=== PATIENT | male | born 1955 | race Caucasian/White ===

== ENCOUNTER → 2020-02-14 12:21 | Outpatient (CLI) | payer MEDICARE, SELFPAY ==
[2020-02-14 12:46] LABS: Basophils # 0.2 K/mm3 (0-0.2); Basophils % 1.1 % (0.1-2.0); Eosinophils # 0.1 K/mm3 (0.0-0.4); Eosinophils % 0.8 % (0.1-12.0); Hematocrit 43.8 % (42.0-52.0); Hemoglobin 14.8 g/dL (14.1-18.0); Lymphocytes # 1.8 K/mm3 (0.7-4.5); Lymphocytes % 11.3 % (10-50); Mean Corpuscular HGB Conc 33.7 g/dL (31.8-35.4); Mean Corpuscular Hemoglobin 29.7 pg (27.0-31.2); Mean Corpuscular Volume 88.1 fl (80-94); Mean Platelet Volume 7.2 fl (7.4-10.4); Monocytes # 0.9 K/mm3 (0.1-1.0); Monocytes % 5.6 % (1.7-9.3); Neutrophils % 81.1 % (37.0-80.0); Platelet Count 304 K/mm3 (142-424); Red Blood Count 4.97 M/mm3 (4.60-6.20); Red Cell Distribution Width 13.5 % (11.5-17.5)
[2020-02-14 12:57] LABS: Anion Gap 14.5 mEq/L (5-15); Blood Urea Nitrogen 15 mg/dl (9-20); Calcium 9.2 mg/dl (8.4-10.2); Carbon Dioxide 31 mmol/L (22.0-30.0); Chloride 93 mmol/L (98-107); Estimated Glomerular Filt Rate 98 ml/min (>60); GFR (African American) 118 ML/MIN (>60); Glucose 216 mg/dl (74-100); Potassium 4.5 mmoL/L (3.5-5.1); Sodium 134 mmol/L (136-145)
[2020-02-14 13:02] LABS: MANUAL DIFFERENTIAL MANUAL DIFFERENTIAL (MANUAL DIFF)
[2020-02-14 13:06] LABS: Acetone, Serum (Rapid) None Detected (None Detect)
[2020-02-14 13:15] LABS: Lymphocytes % 10 % (10-50); Monocytes % 10 % (2-9); Neutrophils % 80 % (42-76); Platelet Estimate Normal; RBC Morphology Normal; Total Cells Counted 100
== END ==
PROVIDERS: Visit Provider Internal Medicine
DX: R30.0 Dysuria (principal); R35.0 Frequency of micturition; E11.21 Type 2 diabetes mellitus with diabetic nephropathy
CPT/HCPCS: 36415; 80048; 82009; 85007; 85025; 87086; 87088; 87186

== ENCOUNTER 2021-01-01 10:54 | Emergency (ER) | payer MEDICARE, SELFPAY ==
[2021-01-01 10:54] VITALS: BP 189/85; PULSE 73; RESP 18; TEMP 37.1; O2SAT 98; BMI 29.9
--- NOTE | 2021-01-01 11:02 | CT_ITS ---
PROCEDURE: CT ABDOMEN PELVIS WO CON CLINICAL INDICATION: R flank pain Right flank pain COMPARISON: No exams were available for comparison TECHNIQUE: Axial images obtained with sagittal and coronal reformats. All CT scans at the facility use one or more dose reduction, viz: automated exposure control, ma/kV adjustment per patient size (including targeted exams where dose is matched to indication, i.e. head), or iterative reconstruction technique. FINDINGS: LOWER THORAX: No acute finding. Coronary artery calcifications ABDOMEN & PELVIS: Fatty liver. Mildly distended gallbladder. The spleen, adrenal glands, and pancreas show no acute finding. There are few small calcifications in the tail the pancreas non specific. There is mild right hydronephrosis and hydroureter secondary to a 8 mm stone in the proximal right ureter. There is stranding of the right perinephric fat and proximal periureteral fat. A 2 mm stone is present in the lower pole of the right kidney. There are few small periportal lymph nodes. There is a mild amount of retained colonic feces. There are few colonic diverticula but no evidence of diverticulitis. No intestinal obstruction or free air. There is thickening of the rectosigmoid region as well as mild thickening of the distal descending and sigmoid colon. These findings could be related to nondistention. Colitis/proctitis is also consideration. No acute bony anomalies apparent. IMPRESSION: 1. 8 mm obstructing proximal right ureteral stone with mild hydro nephrosis and dilatation of the proximal ureter also with stranding of the right perinephric renal fat and associated right nephrolithiasis.. 2. Thickening of the distal descending colon sigmoid colon and rectosigmoid region. This is nonspecific and may be due to nondistention. Colitis/proctitis is also consideration. There is a mild amount of retained colonic feces in the right colon and transverse colon. The Dictated by: Rasheed Jacobson MD 01/01/2021 13:02 Rasheed Jacobson MD in [place] 01/01/2021 13:02
--- NOTE | 2021-01-01 11:32 | HMH.EDGENADL ---
ED Disposition Clinical Impression: Ureterolithiasis Disposition: Home, Self-Care Condition on Discharge: Good Instructions: Kidney Stones -- Adult Prescriptions: Ketorolac Tromethamine [Toradol 10mg tablet] 10 mg PO Q4HP #16 tab MDD 40mg/day Transmission Status: Received by [facility] # Tamsulosin HCl [Flomax 0.4mg capsule] 0.4 mg PO HS #15 cap Transmission Status: Received by [facility] # Oxycodone HCl/Acetaminophen [Percocet 5/325mg tablet] 1 tab PO Q4H PRN #12 tab PRN Reason: Moderate To Severe Pain Transmission Status: Received by [facility] # Ondansetron [Zofran 4mg ODT] 4 mg PO TIDP PRN #10 tab PRN Reason: Nausea And Vomiting Transmission Status: Received by [facility] # Referrals: Konstantin Nava [Primary Care Provider] - Karel Dumont MD [Staff Physician] - Time of Disposition: 13:43 - Critical Care Critical Care Time: No Attestation: On 01/01/21, the high probability of a clinically significant, sudden or life threatening deterioration of the following system(s) required my full and direct attention, intervention and personal management. The time I documented below is in addition to time spent performing reported procedures but includes the following listed in this critical care notation. Medical Decision Making - Medical Records Medical records reviewed: Yes: I reviewed the patient's medical records. - Vincent Inquiry Pt receiving controlled substance: No Vital Signs: 01/01/21 10:54 01/01/21 11:41 Temperature 98.8 F Temperature Source Oral Pulse Rate 78 Pulse Rate [Right] 73 Respiratory Rate 18 Blood Pressure 185/91 H Blood Pressure [Right Arm] 189/85 H Blood Pressure Mean [Right Arm] 119 Blood Pressure Source Automatic Cuff Blood Pressure Position Sitting 02 Sat by Pulse Oximetry 98 95 Oxygen Delivery Method Room Air Room Air - Lab Data Lab results reviewed: Yes: I reviewed the patient's lab results. Lab Results 01/01/21 12:57: Urine Color Yellow, Urine Appearance Clear, Urine pH 6.0, Ur Specific [place] 1.015, Urine Protein Negative, Urine Glucose (UA) 3+, Urine Ketones 2+, Urine Blood 2+, Urine Nitrate Negative, Urine Bilirubin Negative, Urine Urobilinogen 0.2, Ur Leukocyte Esterase Negative, Urine RBC 10-20, Urine WBC 3-5, Ur Squamous Epith Cells 3-5, Urine Bacteria None Orders (Tests/Meds): ED MEDICATIONS Discontinued Medications Generic Name Dose Route Start Last Admin Trade Name Diego PRN Reason Stop Dose Admin Sodium Chloride 1,000 mls @ 999 mls/hr 01/01/21 11:15 01/01/21 11:12 Sod Chlor 0.9% 1000ml Bag IV 01/01/21 12:15 999 mls/hr .Q1H1M MEEK Administration Ketorolac Tromethamine 15 mg 01/01/21 11:01 01/01/21 11:12 Ketorolac 30mg/Ml Vial IV 01/01/21 11:02 15 mg ONCE ONE Administration Ondansetron HCl 4 mg 01/01/21 11:01 01/01/21 11:12 Ondansetron 4mg/2ml Vial IV 01/01/21 11:02 4 mg ONCE ONE Administration - CT Data CT Scan: Abdomen, Pelvis Time Received: 13:02 Preliminary Findings: Abnormal Findings Narrative: 8 mm right-sided ureterolith. Mild perinephric stranding, mild hydro-. Possible colitis/proctitis. Medical Decision Narrative: 65yo M evaluated for right flank pain. History and physical consistent with kidney stone. Urinalysis is pending. Patient sent to CT for abdomen and pelvis without contrast. On my wet read, the patient has 7.6 x 5.2 proximal right-sided kidney stone. Pending over read at this time. Radiology confirms 8 mm kidney stone in the right side with mild hydro-. Pending urinalysis result this time. Once resulted, will consult with urology to obtain further plans. Patient's pain is well controlled with Toradol IV at this time. Tolerating p.o. D/w Dr. Dumont; agrees to see in office at pt's earliest convenience. General Adult HPI - General Chief complaint: Abdominal Pain Stated complaint: possib
[2021-01-01 11:41] VITALS: BP 185/91; PULSE 78; O2SAT 95
[2021-01-01 13:05] LABS: Microscopic, Urine URINE MICROSCOPIC (MICROSCOPIC)
[2021-01-01 13:08] LABS: Appearance,Urine CLEAR (Clear); Bilirubin,Urine Negative (Negative); Blood, Urine 2+ (Negative); Color,Urine YELLOW (Yellow); Glucose,Urine (UA) 3+ (Negative); Ketones,Urine 2+ (Negative); Leukocyte Esterase,Urine Negative (Negative); Nitrate,Urine Negative (Negative); Protein,Urine Negative (Negative); Specific Gravity, Urine 1.015 (1.005-1.030); Urobilinogen,Urine 0.2 EU/dl (0.2)
--- NOTE | 2021-01-01 13:44 | PC.NURSE ---
Dr Tim perry.
[2021-01-01 14:16] VITALS: BP 137/77; PULSE 71; RESP 19; TEMP 37.1; O2SAT 95
== END 2021-01-01 14:19 | disposition home or self-care (01) ==
PROVIDERS: Emergency Provider Family Medicine; PCP Internal Medicine
DX: N13.2 Hydronephrosis with renal and ureteral calculous obstruction (principal); R03.0 Elevated blood-pressure reading, without diagnosis of hypertension
CPT/HCPCS: 74176; 81001; 96365; 96375; 99283; J2405

== ENCOUNTER → 2021-01-07 10:49 | Outpatient (CLI) | payer MEDICARE, SELFPAY ==
--- NOTE | 2021-01-07 10:54 | XR_ITS ---
PROCEDURE: XR KUB CLINICAL INDICATION: ureteral stone COMPARISON: CT CT ABDOMEN PELVIS WO CON from 01/01/2021 FINDINGS: Previous CT scan demonstrated a stone on the right at the L3-L4 level which is not readily apparent on the KUB. There are mild degenerative changes of the lumbar spine and hips. There is a mild amount of retained colonic feces. IMPRESSION: No definite renal or ureteral calculus identified Dictated by: Rasheed Jacobson MD 01/07/2021 17:51 Rasheed Jacobson MD in [place] 01/07/2021 17:51
== END ==
PROVIDERS: PCP Internal Medicine; Visit Provider Urology
DX: N20.1 Calculus of ureter (principal)
CPT/HCPCS: 74018

== ENCOUNTER → 2021-01-14 10:28 | Outpatient (CLI) | payer MEDICARE, SELFPAY ==
--- NOTE | 2021-01-14 10:37 | XR_ITS ---
PROCEDURE: XR KUB CLINICAL INDICATION: URETERAL STONE COMPARISON: CT CT ABDOMEN PELVIS WO CON from 01/01/2021 CR XR KUB from 01/07/2021 FINDINGS: There is a moderate amount of retained colonic feces specially on the right which may obscure renal and ureteral calculi. An oval calcific density overlies the right lateral sacral region measuring 6 mm and may represent a stone within the distal 3rd of the right ureter. There are degenerative changes in the hips IMPRESSION: 6 mm calcific density overlies the sacrum on the right and may be due to a ureteral stone Dictated by: Rasheed Jacobson MD 01/14/2021 12:21 Rasheed Jacobson MD in [facility] 01/14/2021 12:21
== END ==
PROVIDERS: PCP Internal Medicine; Visit Provider Urology
DX: N20.1 Calculus of ureter (principal)
CPT/HCPCS: 74018

== ENCOUNTER → 2021-01-21 09:36 | Outpatient (CLI) | payer MEDICARE, SELFPAY ==
--- NOTE | 2021-01-21 09:38 | XR_ITS ---
PROCEDURE: XR KUB CLINICAL INDICATION: ureteral stone COMPARISON: CT CT ABDOMEN PELVIS WO CON from 01/01/2021 CR XR KUB from 01/14/2021 FINDINGS: 6 mm calcific density is present inferior to the right SI joint at the pelvic inlet consistent with a ureteral stone which has moved distally by approximately 2 cm compared to the previous exam. There is a moderate amount of retained colonic feces. Degenerative changes are present in the lumbosacral spine and hips. IMPRESSION: Right ureteral stone now present at the pelvic inlet just inferior to the right SI joint. Dictated by: Rasheed Jacobson MD 01/21/2021 10:24 Rasheed Jacobson MD in [place] 01/21/2021 10:24
== END ==
PROVIDERS: PCP Internal Medicine; Visit Provider Urology
DX: N20.1 Calculus of ureter (principal)
CPT/HCPCS: 74018

== ENCOUNTER → 2021-01-28 10:39 | Outpatient (CLI) | payer MEDICARE, SELFPAY ==
--- NOTE | 2021-01-28 10:41 | XR_ITS ---
PROCEDURE: XR KUB CLINICAL INDICATION: ureteral stone COMPARISON: CT CT ABDOMEN PELVIS WO CON from 01/01/2021 CR XR KUB from 01/21/2021 FINDINGS: Focal calcification is noted in the right hemipelvis, right distal ureteric calculus, demonstrates migration compared to the x-ray dated January 21, 2021. This measures approximately 6 millimeters. No other focal calcifications. Multilevel degenerative changes of the lumbar spine are noted. Visualized soft tissues are unremarkable. IMPRESSION: Distally migrated right distal ureteric calculus measuring 6 millimeters. Continued close follow-up is recommended. Dictated by: Jessenia Alicea 01/28/2021 12:16 Jessenia Alicea in [facility] 01/28/2021 12:16
== END ==
PROVIDERS: PCP Internal Medicine; Visit Provider Urology
DX: N20.1 Calculus of ureter (principal)
CPT/HCPCS: 74018

== ENCOUNTER → 2021-03-25 13:56 | Outpatient (CLI) | payer MEDICARE, SELFPAY ==
[2021-03-25 14:37] LABS: Chloride 100 mmol/L (98-107); Potassium 4.9 mmoL/L (3.5-5.1); Sodium 139 mmol/L (136-145)
[2021-03-25 14:38] LABS: Hemoglobin A1C 8.1 % (4.0-6.0)
[2021-03-25 14:40] LABS: Alanine Aminotransferase 38 U/L (12-78); Albumin Level 4.5 g/dl (3.5-5.0); Albumin/Globulin Ratio 1.9 (1.1-1.8); Alkaline Phosphatase 50 U/L (38-126); Anion Gap 13.9 mEq/L (5-15); Aspartate Amino Transferase 37 U/L (17-59); Bilirubin,Total 0.5 mg/dl (0.2-1.3); Blood Urea Nitrogen 10 mg/dl (9-20); Carbon Dioxide 30 mmol/L (22.0-30.0); Cholesterol 168 mg/dl (140-200); Estimated Glomerular Filt Rate 97 ml/min (>60); GFR (African American) 118 ML/MIN (>60); Globulin 2.4 g/dL (1.3-3.2); Total Protein,Serum 6.9 g/dl (6.3-8.2); Triglycerides 187 mg/dl (30-150); VLDL Cholesterol 37 mg/dL (0-40)
[2021-03-25 14:41] LABS: Chol/HDL Ratio 2.8 (1-3.5); Glucose 198 mg/dl (74-100); HDL Cholesterol 60 mg/dl (40-60)
[2021-03-25 14:52] LABS: Direct LDL Cholesterol 35.55 mg/dL (100-129)
[2021-03-25 15:00] LABS: Microalbumin < 6.000 mg/L (0-16.7)
[2021-03-25 15:13] LABS: Creatinine,Urine Random 73 mg/dL (Not Estab.)
== END ==
PROVIDERS: Visit Provider Internal Medicine
DX: E11.42 Type 2 diabetes mellitus with diabetic polyneuropathy (principal); E78.5 Hyperlipidemia, unspecified; I10 Essential (primary) hypertension; N40.1 Benign prostatic hyperplasia with lower urinary tract symptoms; Z79.84 Long term (current) use of oral hypoglycemic drugs
CPT/HCPCS: 80053; 80061; 82043; 82570; 83036

== ENCOUNTER → 2021-09-30 13:21 | Outpatient (CLI) | payer MEDICARE, SELFPAY ==
[2021-09-30 13:32] LABS: Basophils # 0.1 K/mm3 (0-0.2); Basophils % 1.1 % (0.1-2.0); Eosinophils # 0.1 K/mm3 (0.0-0.4); Eosinophils % 2.4 % (0.1-12.0); Hematocrit 49.3 % (42.0-52.0); Hemoglobin 16.3 g/dL (14.1-18.0); Lymphocytes # 1.7 K/mm3 (0.7-4.5); Lymphocytes % 28.3 % (10-50); Mean Corpuscular Hemoglobin 30.6 pg (27.0-31.2); Mean Corpuscular Volume 92.5 fl (80-94); Mean Platelet Volume 8.9 fl (7.4-10.4); Monocytes # 0.5 K/mm3 (0.1-1.0); Monocytes % 8.3 % (1.7-9.3); Neutrophils # 3.6 K/mm3 (1.8-7.8); Neutrophils % 59.8 % (37.0-80.0); Platelet Count 280 K/mm3 (142-424); Red Blood Count 5.32 M/mm3 (4.60-6.20); Red Cell Distribution Width 13.8 % (11.5-17.5)
[2021-09-30 14:33] LABS: Alanine Aminotransferase 48 U/L (12-78); Albumin Level 4.7 g/dl (3.5-5.0); Albumin/Globulin Ratio 2.2 (1.1-1.8); Alkaline Phosphatase 43 U/L (38-126); Anion Gap 14.5 mEq/L (5-15); Aspartate Amino Transferase 41 U/L (17-59); Bilirubin,Total 0.5 mg/dl (0.2-1.3); Blood Urea Nitrogen 17 mg/dl (9-20); Calcium 9.2 mg/dl (8.4-10.2); Carbon Dioxide 32 mmol/L (22.0-30.0); Chloride 93 mmol/L (98-107); Cholesterol 191 mg/dl (140-200); Estimated Glomerular Filt Rate 85 ml/min (>60); GFR (African American) 103 ML/MIN (>60); Globulin 2.1 g/dL (1.3-3.2); Glucose 215 mg/dl (74-100); HDL Cholesterol 48 mg/dl (40-60); Potassium 4.5 mmoL/L (3.5-5.1); Sodium 135 mmol/L (136-145); Total Protein,Serum 6.8 g/dl (6.3-8.2); Triglycerides 305 mg/dl (30-150); VLDL Cholesterol 61 mg/dL (0-40)
[2021-09-30 14:40] LABS: Hemoglobin A1C 8.1 % (4.0-6.0)
[2021-09-30 14:44] LABS: Direct LDL Cholesterol 38.14 mg/dL (100-129)
[2021-09-30 15:04] LABS: Prostate Specific Ag Screen 0.3 ng/ml (0.0-4.0)
== END ==
PROVIDERS: Visit Provider Internal Medicine
DX: E11.42 Type 2 diabetes mellitus with diabetic polyneuropathy (principal); I10 Essential (primary) hypertension; N40.1 Benign prostatic hyperplasia with lower urinary tract symptoms; E29.1 Testicular hypofunction; Z12.5 Encounter for screening for malignant neoplasm of prostate; Z79.84 Long term (current) use of oral hypoglycemic drugs
CPT/HCPCS: 80053; 80061; 82043; 83036; 85025; G0103

== ENCOUNTER → 2022-01-15 06:33 | Outpatient (CLI) | payer SELFPAY ==
--- NOTE | 2022-01-15 06:35 | CT_ITS ---
FINAL REPORT CLINICAL HISTORY: CHEST PAIN FINDINGS: CT CORONARY CALCIUM SCORE W/O TECHNIQUE: Thin-section axial images were obtained through the heart and coronary arteries per CT coronary calcium score protocol. This study was performed with techniques to keep radiation doses as low as reasonably achievable (ALARA). Individualized dose reduction techniques using automated exposure control or adjustment of mA and/or kV according to the patient's size were employed. FINDINGS: On the axial images, there is calcification predominantly within the right coronary artery. This gives a coronary artery calcium score of 517.57 based on the Agatston scale. This coronary artery calcium score places the patient within the 72 percentile based on age and gender. The heart size is normal. There is no pleural or pericardial effusion. Limited evaluation of the lungs reveal no suspicious nodule. IMPRESSION: 72 percentile. Reviewed, Interpreted and Dictated by Jose Cruz Case MD Transcribed by Luis Betancourt Authenticated by Jose Cruz Case MD on 01/15/2022 11:20:[address] [facility]
== END ==
PROVIDERS: PCP Internal Medicine; Visit Provider Physician Assistant
DX: R07.89 Other chest pain (principal); R94.31 Abnormal electrocardiogram [ECG] [EKG]; E11.9 Type 2 diabetes mellitus without complications; I10 Essential (primary) hypertension; Z82.49 Family history of ischemic heart disease and other diseases of the circulatory system; Z79.84 Long term (current) use of oral hypoglycemic drugs
CPT/HCPCS: 75571

== ENCOUNTER → 2022-01-16 06:07 | Outpatient (CLI) | payer MEDICARE, SELFPAY ==
--- NOTE | 2022-01-16 06:09 | NM_ITS ---
APPROVED REPORT Exam: Nuclear Stress Test Indication: HTN, DDixieM., TOM GAMBINO CDixiePDixie Patient Location: Outpatient Stress Tech: Angela Wright [place] Tech:Janette Lal LAWRhea RT (R)(N)(M) Ht: 5 ft 10 in Wt: 208 lbs HR: 71 bpm BP: 126/72 mmHg BSA: 2.12 m2 BMI: 29.8 History: HTNBlake., TOM GAMBINO, C.P. Procedure: Patient exercised on Mehul protocol 6:39 minutes and sec, resting heart rate 71 bpm, resting blood pressure 126/72 mmHg, with exercise maximum heart rate achived was 155 bpm which is 100 % of the maximum predicted heart rate and blood pressure was 184/88 mmHg. Test was stopped due to SOA. Patient denied any complaint of chest pain. Patient has Adequate exercise capacity, achieved 7.0 METs of workload on treadmill, the blood pressure response to exercise was Adequate. Electrocardiogram Resting electrocardiogram shows sinus rhythm, with exercise there is less than 1.[address] segment depression noted from the baseline EKG. The EKG portion of the exercise Myoview is negative for ischemia. Cardiac Stress and Resting SPECT Images: Cardiac Stress and Resting SPECT images were obtained using technetium 99m Myoview 30.1 mCi stress and 10.88 mCi at rest. Gated SPECT for analysis of segmental wall motion and calculation of the ejection fraction also done. Cardiac stress and rest SPECT images show uniform myocardial activity without segmental perfusion abnormality, computer derived ejection fraction is 54% with no regional wall motion abnormality, right ventricle is normal size and contractility. Conclusion: 1. The EKG portion of the exercise Myoview is negative for ischemia. Patient has adequate exercise capacity achieved 7 METS of workload on treadmill, the blood pressure response to exercise was adequate, there was no exercise-induced chest discomfort. 2. No scintigraphic evidence of reversible ischemia seen, compared right ejection fraction is 54% with no regional wall motion abnormality, right ventricle is normal size and contractility. 3. Normal exercise Myoview study. Electronically signed by : Solitario Vazquez MD 01/16/2022 14:13:23
--- NOTE | 2022-01-16 06:09 | CA_ITS ---
APPROVED REPORT Exam: Exercise Treadmill Technologist: Angela Wright, Ht: 5 ft 9 in Wt: 210 lbs BSA: 2.11 m2 HR: 71 bpm BP: 126/72 mmHg Rhythm: cp, abn ekg Medical History Medical History: HTN, Diabetes Medications: Lisinopril,,,,, Alprazolam,,,,, Metformin,,,,, OxYCODONE,,,,, PaROXETINE,,,,, AmiTRIPTYLINE,,,,, Pregabalin,,,,, ONdansetron,,,,, Hydrocodone-Acetaminohen,,,,, Allergies: No known drug allergies Cardiac Risk Factors: HTN, Diabetes , FHX of CAD Stress Test Details Test: Mehul, Exercise stress testing was performed using a modified Mehul protocol. HR Resting HR: 85 bpm Max Heart Rate (APMHR): 155.117021 bpm Max HR Achieved: 155 bpm Target HR (85% APMHR): 131.076727 bpm % of APMHR: 100.00 Recovery HR: 98 bpm BP Resting BP: 126/82 mmHg Max BP: 184/88 mmHg Recovery BP: 139.0/79.0 mmHg ECG Clinical Exercise duration: 06:39 min Highest Stage Achieved: Exercise capacity: 7.0 METs Stress ECG Conclusion PT BECAME SOA WITH PEAK EXERCISE. NO CP. PVCS NOTED. Test Summary REST . . . . . . . Sitting REST 16:04 0.0 0.0 85 . 126/ 82 . . Stage 1 01:00 10.0 1.7 93 . . . . Stage 1 02:00 10.0 1.7 100 . . . . Stage 1 03:00 10.0 1.7 106 . 130/ 80 . . Stage 2 01:00 12.0 2.5 122 . . . . Stage 2 02:00 12.0 2.5 133 . . . . Stage 2 03:00 12.0 2.5 144 . 150/ 75 . . Stage 3 00:39 14.0 3.4 154 . . . Stop exercise at 06:39 RECOVERY 01:00 0.0 0.0 143 . . . . RECOVERY 02:00 0.0 0.0 124 . 160/ 68 . . RECOVERY 03:00 0.0 0.0 103 . 184/ 88 . . RECOVERY 04:00 0.0 0.0 105 . 154/ 81 . . RECOVERY 04:54 0.0 0.0 100 . 139/ 79 . . Electronically signed by : Solitario Vazquez MD 01/16/2022 14:11:02
--- NOTE | 2022-01-16 06:09 | CA_ITS ---
APPROVED REPORT EXAM: Comprehensive 2D, Doppler, and color-flow Echocardiogram [employer] Officer: Valentina Partida RVT Ht: 5 ft 9 in Wt: 210lbs BSA: 2.11 BP: 136/74 mmHg Indications: cp,abn ekg,htn,dm,family hx hd 2D Dimensions LVOT 2.40 cm (M/F) 1.5-2.5 LA Volume 28.00 mL LA Volume Index 13.27 mL/m2 (M/F) 16-34 M-Mode Dimensions RVDd 2.40 cm (0.9-2.6) LA Diam 3.80 cm (1.9-4.0) LVDd 4.50 cm (3.5-5.7) Ao Diam 3.40 cm (2.0-3.7) LVDs 3.10 cm (3.5-5.7) AV Cusp 2.00 cm (1.5-2.6) IVSd 1.00 cm (0.6-1.1) PWd 1.10 cm (0.6-1.1) EF (Teich) 59.00% FS 31.10% EDV (Teich) 92.40 mL ESV (Teich) 37.90 mL LV Diastology E/A Ratio 0.6 MED E' 4.00 (< 7 cm/sec) E'/MED E' Ratio 11.60 (>14) LAT E' 9.85 (<10 cm/sec) E/LAT E' Ratio 4.70 (>14) Aortic Valve AoV Peak Nathanael. 90.80 (50-130 cm/s) AO Peak GR. 3.00 mmHg Mitral Valve MV E Max Nathanael. 46.40 (40-130 cm/s) MV A Velocity 82.40 (40-130 cm/s) E/A Ratio 0.60 Pulmonary Valve PV Peak Velocity 82.40 (50-150 cm/s) Left Ventricle Left atrium is mildly enlarged, left ventricle is normal size, mild concentric left ventricular hypertrophy, estimated ejection fraction 55% with no regional wall motion abnormality, grade 1 diastolic dysfunction seen without tissue Doppler evidence of raise left atrial pressure. Right Ventricle Right atrium and right ventricle are normal size and contractility. Aortic Valve Aortic valve is minimally thickened and fibrosed there is no aortic stenosis or aortic insufficiency. Mitral Valve Mitral valve is grossly normal, there is trace mitral regurgitation. Tricuspid Valve Tricuspid grossly normal, there is trace tricuspid regurgitation, tricuspid regurgitation jet velocity is inadequate for calculation of the right ventricular systolic pressure. Pulmonic Valve Pulmonic valve is poorly visualized. Great Vessels Aortic root is normal size. Inferior vena cava is poorly visualized. Pericardium No significant pericardial effusion noted. Conclusion 1. Normal left ventricular size, preserved left ventricular systolic function, visually estimated ejection fraction 55% with no regional wall motion abnormality, grade 1 diastolic dysfunction seen without tissue Doppler evidence of raise left atrial pressure. 2. Trace mitral and tricuspid regurgitation. 3. No significant pericardial effusion. 4. Inferior vena cava is poorly visualized. Electronically signed by : Solitario Vazquez MD 01/16/2022 12:47:39
== END ==
PROVIDERS: PCP Internal Medicine; Visit Provider Physician Assistant
DX: E13.69 Other specified diabetes mellitus with other specified complication (principal); I10 Essential (primary) hypertension; R07.89 Other chest pain; R94.31 Abnormal electrocardiogram [ECG] [EKG]; Z82.49 Family history of ischemic heart disease and other diseases of the circulatory system; Z79.84 Long term (current) use of oral hypoglycemic drugs
CPT/HCPCS: 78452; 93017; 93306; A9502

== ENCOUNTER → 2022-03-30 13:26 | Outpatient (CLI) | payer MEDICARE, SELFPAY ==
[2022-03-30 14:28] LABS: Hemoglobin A1C 7.7 % (4.0-6.0)
[2022-03-30 14:32] LABS: Alanine Aminotransferase 45 U/L (12-78); Albumin Level 4.3 g/dl (3.5-5.0); Albumin/Globulin Ratio 1.7 (1.1-1.8); Alkaline Phosphatase 50 U/L (38-126); Anion Gap 13.7 mEq/L (5-15); Aspartate Amino Transferase 37 U/L (17-59); Bilirubin,Total 0.2 mg/dl (0.2-1.3); Blood Urea Nitrogen 10 mg/dl (9-20); Calcium 9.5 mg/dl (8.4-10.2); Carbon Dioxide 34 mmol/L (22.0-30.0); Chloride 99 mmol/L (98-107); Chol/HDL Ratio 2.7 (1-3.5); Cholesterol 177 mg/dl (140-200); Estimated Glomerular Filt Rate 97 ml/min (>60); GFR (African American) 117 ML/MIN (>60); Globulin 2.5 g/dL (1.3-3.2); Glucose 177 mg/dl (74-100); HDL Cholesterol 66 mg/dl (40-60); Potassium 5.7 mmoL/L (3.5-5.1); Sodium 141 mmol/L (136-145); Total Protein,Serum 6.8 g/dl (6.3-8.2); Triglycerides 152 mg/dl (30-150); VLDL Cholesterol 30 mg/dL (0-40)
[2022-03-30 14:43] LABS: Direct LDL Cholesterol 33.95 mg/dL (100-129)
[2022-04-01 09:36] LABS: Testosterone,Total 301 ng/dL (264-916)
== END ==
PROVIDERS: PCP Internal Medicine; Visit Provider Internal Medicine
DX: E11.42 Type 2 diabetes mellitus with diabetic polyneuropathy (principal); E78.5 Hyperlipidemia, unspecified; I10 Essential (primary) hypertension; N40.1 Benign prostatic hyperplasia with lower urinary tract symptoms; Z79.84 Long term (current) use of oral hypoglycemic drugs
CPT/HCPCS: 80053; 80061; 83036; 84403

== ENCOUNTER → 2022-09-30 11:21 | Outpatient (CLI) | payer MEDICARE, SELFPAY ==
[2022-09-30 12:00] LABS: Basophils # 0.1 K/mm3 (0-0.2); Basophils % 1.2 % (0.1-2.0); Eosinophils # 0.2 K/mm3 (0.0-0.4); Eosinophils % 2.5 % (0.1-12.0); Hematocrit 49.8 % (42.0-52.0); Hemoglobin 15.8 g/dL (14.1-18.0); Lymphocytes # 1.9 K/mm3 (0.7-4.5); Lymphocytes % 29.5 % (10-50); Mean Corpuscular HGB Conc 31.6 g/dL (31.8-35.4); Mean Corpuscular Hemoglobin 28.3 pg (27.0-31.2); Mean Corpuscular Volume 89.7 fl (80-94); Mean Platelet Volume 8.9 fl (7.4-10.4); Monocytes # 0.5 K/mm3 (0.1-1.0); Monocytes % 7.1 % (1.7-9.3); Neutrophils # 3.8 K/mm3 (1.8-7.8); Neutrophils % 59.7 % (37.0-80.0); Platelet Count 308 K/mm3 (142-424); Red Blood Count 5.56 M/mm3 (4.60-6.20); Red Cell Distribution Width 13.8 % (11.5-17.5); White Blood Count 6.4 K/mm3 (4.8-10.8)
[2022-09-30 12:56] LABS: Hemoglobin A1C 9.2 % (4.0-6.0)
[2022-09-30 14:01] LABS: Alanine Aminotransferase 36 U/L (12-78); Albumin Level 4.3 g/dl (3.5-5.0); Albumin/Globulin Ratio 1.8 (1.1-1.8); Alkaline Phosphatase 53 U/L (38-126); Anion Gap 12.5 mEq/L (5-15); Aspartate Amino Transferase 30 U/L (17-59); Bilirubin,Total 0.4 mg/dl (0.2-1.3); Blood Urea Nitrogen 12 mg/dl (9-20); Calcium 8.8 mg/dl (8.4-10.2); Carbon Dioxide 32 mmol/L (22.0-30.0); Chloride 100 mmol/L (98-107); Cholesterol 201 mg/dl (140-200); Estimated Glomerular Filt Rate 85 ml/min (>60); GFR (African American) 102 ML/MIN (>60); Globulin 2.4 g/dL (1.3-3.2); Glucose 207 mg/dl (74-100); HDL Cholesterol 50 mg/dl (40-60); Potassium 5.5 mmoL/L (3.5-5.1); Sodium 139 mmol/L (136-145); Total Protein,Serum 6.7 g/dl (6.3-8.2); Triglycerides 250 mg/dl (30-150); VLDL Cholesterol 50 mg/dL (0-40)
[2022-09-30 14:12] LABS: Direct LDL Cholesterol 40.74 mg/dL (100-129)
[2022-09-30 14:31] LABS: Prostate Specific Ag Screen 0.4 ng/ml (0.0-4.0)
[2022-09-30 14:56] LABS: Creatinine,Urine Random 113 mg/dL (Not Estab.)
[2022-09-30 14:57] LABS: Microalbumin/Creatinine Ratio 7.4
== END ==
PROVIDERS: PCP Internal Medicine; Visit Provider Internal Medicine
DX: E11.42 Type 2 diabetes mellitus with diabetic polyneuropathy (principal); I10 Essential (primary) hypertension; E29.1 Testicular hypofunction; N40.1 Benign prostatic hyperplasia with lower urinary tract symptoms; Z79.84 Long term (current) use of oral hypoglycemic drugs; Z12.5 Encounter for screening for malignant neoplasm of prostate
CPT/HCPCS: 80053; 80061; 82043; 82570; 83036; 85025; G0103

== ENCOUNTER → 2023-03-30 12:44 | Outpatient (CLI) | payer MEDICARE, SELFPAY ==
[2023-03-30 16:57] LABS: Alanine Aminotransferase 37 U/L (12-78); Albumin Level 4.7 g/dl (3.5-5.0); Alkaline Phosphatase 53 U/L (38-126); Aspartate Amino Transferase 42 U/L (17-59); Bilirubin,Total 0.6 mg/dl (0.2-1.3); Blood Urea Nitrogen 8 mg/dl (9-20); Carbon Dioxide 31 mmol/L (22.0-30.0); Chloride 97 mmol/L (98-107); Chol/HDL Ratio 2.7 (1-3.5); Cholesterol 145 mg/dl (140-200); Estimated Glomerular Filt Rate 84 ml/min (>60); GFR (African American) 102 ML/MIN (>60); Globulin 2.3 g/dL (1.3-3.2); Glucose 134 mg/dl (74-100); HDL Cholesterol 53 mg/dl (40-60); Sodium 139 mmol/L (136-145); Triglycerides 128 mg/dl (30-150); VLDL Cholesterol 26 mg/dL (0-40)
[2023-03-30 17:09] LABS: Direct LDL Cholesterol 52.34 mg/dL (100-129)
[2023-03-30 17:12] LABS: Hemoglobin A1C 8.6 % (4.0-6.0)
== END ==
PROVIDERS: PCP Internal Medicine; Visit Provider Internal Medicine
DX: E11.42 Type 2 diabetes mellitus with diabetic polyneuropathy (principal); E78.5 Hyperlipidemia, unspecified; I10 Essential (primary) hypertension; Z79.84 Long term (current) use of oral hypoglycemic drugs
CPT/HCPCS: 80053; 80061; 83036

== ENCOUNTER → 2023-04-26 07:39 | Outpatient (CLI) | payer SELFPAY ==
--- NOTE | 2023-04-26 07:45 | CT_ITS ---
APPROVED REPORT Customer Accounts Advisor: CLINICAL INDICATION Chest Pain TECHNIQUE Image Acquisition: A 128 slice MDCT scanner (Rayna View) was used for data acquisition. A noncontrast coronary calcium scan was performed. A tube voltage of 120 KVp was used. The patient received no medications prior to the coronary calcium CT. Image Reconstruction Transaxial images were reconstructed at 0.67 mm slide thickness. Data was reviewed interactively on an advanced workstation capable of 2 and 3-dimensional displays in all conventional reconstruction formats, including multiplanar reformations, maximum intensity projections, curved multiplanar reformations, and volume rendered reconstructions. When applicable, selected routine images describing the relevant coronary anatomy and pathology were saved and sent to PACS. Complications None Technical Quality Overall image quality was good. Total DLP (Dose-Length Product) is 233.86 mGy-cm. The reported value represents the total of one or more individual components during the CT acquisition of this date and at this time, and as such, the same value may appear in more than one CT report depending on the interpreting/reporting physicians. COMPARISON None FINDINGS CT Coronary Calcium Scoring LMA (Left Main Artery) = 0 LAD (Left Anterior Descending) = 0 LCX (Left Coronary Circumflex) = 0 RCA (Right Coronary Artery) = 524.7 Total Calcium Score = 524.7 using the AJ-130 method. There is mild calcification in the ascending and descending aorta, but not in the aortic valve, mitral annulus or mitral valve, pericardium, or myocardium. IMPRESSION -Coronary artery calcification is present. -Total Calcium Score (Agatston Score) = 524.7 using the AJ-130 method. -According to The Multi-Ethnic Study of Atherosclerosis (MARIE) Coronary Artery Calcium (CAC) risk, the estimated probability of a non-zero calcium score for an individual of your ethnicity and age is 78%. The observed calcium score of 524.7 is at 81 percentile for subjects of the same age, sex, and race/ethnicity who are free of clinical cardiovascular disease and treated diabetes. The interpretation of the calcium heart score is based on the following continuum*: 0 = no calcified plaque detected (risk of coronary artery disease is very low ??? less than 5%) 1-10 = calcium detected in extremely minimal levels (risk of coronary diseases is still low ??? less than 10%) 11-100 = mild levels of plaque detected with certainty (minimal narrowing of heart arteries is likely) 101-300 = moderate levels of plaque detected (relatively high risk of a heart attack within 3-5 years) 300-400 = extensive levels of plaque detected (very high risk of heart attack, high levels of vascular disease are present) *The calcium heart score quantifies the burden of coronary calcification/plaque in the coronary arteries. The calcium heart score is not able to evaluate the presence or burden of non-calcified (i.e. soft) plaque. CRITICAL RESULT None COMMUNICATION Per this written report The coronary and cardiac findings of this Coronary Calcium CT were reviewed, reported, and signed by Blane Castanon MD ([employer]). Conclusion Electronically signed by : Sondra Castanon, 04/27/2023 12:55:38
== END ==
PROVIDERS: PCP Internal Medicine; Visit Provider Internal Medicine
DX: Z13.6 Encounter for screening for cardiovascular disorders (principal)
CPT/HCPCS: 75571

== ENCOUNTER 2023-09-28 13:55 | Outpatient (CLI) | payer MEDICARE, SELFPAY ==
[2023-09-28 14:50] LABS: Basophils # 0.1 K/mm3 (0-0.2); Eosinophils # 0.3 K/mm3 (0.0-0.4); Eosinophils % 4.4 % (0.1-12.0); Hematocrit 44.4 % (42.0-52.0); Hemoglobin 15.2 g/dL (14.1-18.0); Lymphocytes # 2.4 K/mm3 (0.7-4.5); Mean Corpuscular HGB Conc 34.2 g/dL (31.8-35.4); Mean Corpuscular Volume 87.7 fl (80-94); Mean Platelet Volume 9.2 fl (7.4-10.4); Monocytes # 0.5 K/mm3 (0.1-1.0); Monocytes % 6.3 % (1.7-9.3); Neutrophils # 4.4 K/mm3 (1.8-7.8); Neutrophils % 57.3 % (37.0-80.0); Platelet Count 440 K/mm3 (142-424); Red Blood Count 5.06 M/mm3 (4.60-6.20); Red Cell Distribution Width 13.6 % (11.5-17.5); White Blood Count 7.6 K/mm3 (4.8-10.8)
[2023-09-28 15:08] LABS: Hemoglobin A1C 7.9 % (4.0-6.0)
[2023-09-28 15:30] LABS: Chloride 96 mmol/L (98-107); Potassium 4.5 mmoL/L (3.5-5.1); Sodium 137 mmol/L (136-145)
[2023-09-28 15:32] LABS: Blood Urea Nitrogen 15 mg/dl (9-20); Estimated Glomerular Filt Rate 84 ml/min (>60); GFR (African American) 102 ML/MIN (>60)
[2023-09-28 15:33] LABS: Alanine Aminotransferase 29 U/L (12-78); Albumin Level 4.1 g/dl (3.5-5.0); Albumin/Globulin Ratio 1.6 (1.1-1.8); Alkaline Phosphatase 56 U/L (38-126); Anion Gap 16.5 mEq/L (5-15); Aspartate Amino Transferase 29 U/L (17-59); Bilirubin,Total 0.4 mg/dl (0.2-1.3); Carbon Dioxide 29 mmol/L (22.0-30.0); Chol/HDL Ratio 2.7 (1-3.5); Cholesterol 145 mg/dl (140-200); Globulin 2.6 g/dL (1.3-3.2); Glucose 141 mg/dl (74-100); HDL Cholesterol 53 mg/dl (40-60); Total Protein,Serum 6.7 g/dl (6.3-8.2); Triglycerides 108 mg/dl (30-150); VLDL Cholesterol 22 mg/dL (0-40)
[2023-09-28 15:44] LABS: Direct LDL Cholesterol 43.31 mg/dL (100-129)
[2023-09-28 16:29] LABS: Prostate Specific Ag Screen 0.4 ng/ml (0.0-4.0)
[2023-09-30 13:21] LABS: Testosterone,Total 914 ng/dL (264-916)
== END 2023-09-28 23:59 ==
LOC: LAB.DROPOF 13:56
PROVIDERS: PCP Internal Medicine; Visit Provider Internal Medicine
DX: E11.42 Type 2 diabetes mellitus with diabetic polyneuropathy (principal); I10 Essential (primary) hypertension; E29.1 Testicular hypofunction; Z12.5 Encounter for screening for malignant neoplasm of prostate; Z79.84 Long term (current) use of oral hypoglycemic drugs
CPT/HCPCS: 80053; 80061; 83036; 84403; 85025; G0103

== ENCOUNTER 2024-04-12 15:27 | Outpatient (CLI) | payer MEDICARE, SELFPAY ==
[2024-04-12 12:54] LABS: Alanine Aminotransferase 42 U/L (12-78); Albumin Level 3.8 g/dl (3.5-5.0); Albumin/Globulin Ratio 1.7 (1.1-1.8); Alkaline Phosphatase 56 U/L (38-126); Anion Gap 12.7 mEq/L (5-15); Aspartate Amino Transferase 32 U/L (17-59); Bilirubin,Total 0.4 mg/dl (0.2-1.3); Blood Urea Nitrogen 12 mg/dl (9-20); Calcium 9.2 mg/dl (8.4-10.2); Carbon Dioxide 31 mmol/L (22.0-30.0); Chloride 98 mmol/L (98-107); Chol/HDL Ratio 3.4 (1-3.5); Cholesterol 210 mg/dl (140-200); Estimated Glomerular Filt Rate 112 ml/min (>60); GFR (African American) 136 ML/MIN (>60); Globulin 2.3 g/dL (1.3-3.2); Glucose 190 mg/dl (74-100); HDL Cholesterol 61 mg/dl (40-60); Potassium 4.7 mmoL/L (3.5-5.1); Sodium 137 mmol/L (136-145); Total Protein,Serum 6.1 g/dl (6.3-8.2); Triglycerides 279 mg/dl (30-150); VLDL Cholesterol 56 mg/dL (0-40)
[2024-04-12 13:05] LABS: Direct LDL Cholesterol 36.06 mg/dL (100-129)
[2024-04-12 14:01] LABS: Creatinine,Urine Random 70 mg/dL (Not Estab.); Microalbumin < 6.000 mg/L (0-16.7)
[2024-04-12 14:02] LABS: Hemoglobin A1C 7.7 % (4.0-6.0)
== END 2024-04-12 23:59 | disposition home or self-care (01) ==
LOC: LAB.DROPOF 15:28
PROVIDERS: PCP Internal Medicine; Visit Provider Internal Medicine
DX: E11.42 Type 2 diabetes mellitus with diabetic polyneuropathy (principal); E78.5 Hyperlipidemia, unspecified; E11.59 Type 2 diabetes mellitus with other circulatory complications; I10 Essential (primary) hypertension
CPT/HCPCS: 80053; 80061; 82043; 82570; 83036

== ENCOUNTER 2024-10-04 09:50 | Outpatient (CLI) | payer MEDICARE, SELFPAY ==
[2024-10-04 17:12] LABS: Basophils # 0.1 K/mm3 (0-0.2); Basophils % 0.8 % (0.1-2.0); Eosinophils # 0.1 K/mm3 (0.0-0.4); Eosinophils % 1.7 % (0.1-12.0); Hematocrit 41.3 % (42.0-52.0); Hemoglobin 13.6 g/dL (14.1-18.0); Lymphocytes # 1.4 K/mm3 (0.7-4.5); Lymphocytes % 21.8 % (10-50); Mean Corpuscular HGB Conc 32.9 g/dL (31.8-35.4); Mean Corpuscular Hemoglobin 28.6 pg (27.0-31.2); Mean Corpuscular Volume 86.8 fl (80-94); Mean Platelet Volume 10.6 fl (7.4-10.4); Monocytes # 0.6 K/mm3 (0.1-1.0); Neutrophils # 4.1 K/mm3 (1.8-7.8); Neutrophils % 65.4 % (37.0-80.0); Platelet Count 233 K/mm3 (142-424); Red Blood Count 4.76 M/mm3 (4.60-6.20); Red Cell Distribution Width 13.5 % (11.5-17.5); White Blood Count 6.3 K/mm3 (4.8-10.8)
[2024-10-04 17:36] LABS: Albumin Level 4.5 g/dl (3.5-5.0); Chloride 94 mmol/L (98-107)
[2024-10-04 17:37] LABS: Potassium 4.2 mmoL/L (3.5-5.1); Sodium 134 mmol/L (136-145)
[2024-10-04 17:39] LABS: Alanine Aminotransferase 49 U/L (12-78); Anion Gap 13.2 mEq/L (5-15); Aspartate Amino Transferase 49 U/L (17-59); Blood Urea Nitrogen 14 mg/dl (9-20); Carbon Dioxide 31 mmol/L (22.0-30.0); Estimated Glomerular Filt Rate 84 ml/min (>60); GFR (African American) 102 ML/MIN (>60)
[2024-10-04 17:40] LABS: Alkaline Phosphatase 68 U/L (38-126); Bilirubin,Total 0.3 mg/dl (0.2-1.3); Calcium 9.2 mg/dl (8.4-10.2); Chol/HDL Ratio 2.3 (1-3.5); Cholesterol 140 mg/dl (140-200); Globulin 2.2 g/dL (1.3-3.2); Glucose 206 mg/dl (74-100); HDL Cholesterol 60 mg/dl (40-60); Total Protein,Serum 6.7 g/dl (6.3-8.2); Triglycerides 284 mg/dl (30-150); VLDL Cholesterol 57 mg/dL (0-40)
[2024-10-04 17:58] LABS: Direct LDL Cholesterol < 30.00 mg/dL (100-129)
[2024-10-04 18:22] LABS: Prostate Specific Ag Screen 0.1 ng/ml (0.0-4.0)
[2024-10-04 20:42] LABS: Hemoglobin A1C 8.9 % (4.0-6.0)
[2024-10-06 09:11] LABS: Testosterone,Total 311 ng/dL (264-916)
== END 2024-10-04 23:59 | disposition home or self-care (01) ==
LOC: LAB.DROPOF 10-05 09:51
PROVIDERS: PCP Internal Medicine; Visit Provider Internal Medicine
DX: I10 Essential (primary) hypertension (principal); E11.42 Type 2 diabetes mellitus with diabetic polyneuropathy; Z12.5 Encounter for screening for malignant neoplasm of prostate; R79.89 Other specified abnormal findings of blood chemistry; E11.59 Type 2 diabetes mellitus with other circulatory complications; E78.5 Hyperlipidemia, unspecified
CPT/HCPCS: 80053; 80061; 83036; 84403; 85025; G0103

== ENCOUNTER 2025-01-18 12:10 | Outpatient (CLI) | payer MEDICARE, SELFPAY ==
--- NOTE | 2025-01-18 12:14 | XR_ITS ---
FINAL REPORT CLINICAL HISTORY: Left flank pain COMPARISON: None FINDINGS: SINGLE VIEW ABDOMEN A single view of the abdomen was obtained. There is a moderate amount of stool in the colon. There are no abnormally dilated loops of small bowel. No abnormal calcifications are identified. IMPRESSION: Moderate stool burden. No abnormal calcifications. Reviewed, Interpreted and Dictated by Jose Cruz Case MD Transcribed by Katty Jain Authenticated and [facility]
--- NOTE | 2025-01-18 13:30 | CT_ITS ---
FINAL REPORT TECHNIQUE: Axial images through the abdomen and pelvis were performed without contrast. This study was performed with techniques to keep radiation doses as low as reasonably achievable, (ALARA). Individualized dose reduction techniques using automated exposure control or adjustment of mA and/or kV according to the patient's size were employed. CLINICAL HISTORY: Left flank pain COMPARISON: 01/01/2021 FINDINGS: Abdomen: The lung bases are clear. There is moderate fatty infiltration of the liver. The gallbladder is present. The spleen, pancreas, adrenals and kidneys are unremarkable. Pelvis: The urinary bladder is unremarkable. The appendix is unremarkable. A moderate amount of stool is seen throughout the colon. There is no pelvic mass or inflammation. IMPRESSION: Fatty liver. Moderate constipation. Reviewed, Interpreted and Dictated by Jose Cruz Case MD Transcribed by Katty Jain Authenticated and [facility]
== END 2025-01-18 23:59 | disposition home or self-care (01) ==
PROVIDERS: PCP Internal Medicine; Visit Provider Internal Medicine
DX: K76.0 Fatty (change of) liver, not elsewhere classified (principal); R10.9 Unspecified abdominal pain; K56.41 Fecal impaction
CPT/HCPCS: 74018; 74176